=== PATIENT | female | born 1960 | race Caucasian/White ===

== ENCOUNTER 2018-11-12 00:28 | Emergency (ER) | payer SELFPAY ==
[2018-11-12] MEDS ORDERED: Morphine 4 MG/ML VIAL ONE (00:55)
[2018-11-12] MEDS ORDERED: Ondansetron PF 4 MG/2 ML Vial ONE ×2 (00:56→02:04)
[2018-11-12 01:08] LABS: #Basophils 0.1 thou/uL (0.0-0.2); #Eosinphils 0.6 thou/uL (0.0-0.7); #Lymphocytes 2.4 thou/uL (1.20-3.40); #Monocytes 1.1 thou/uL (0.11-0.59); #Neutrophils 14.2 thou/uL (1.40-6.50); %Basophils 0.6 % (0.0-1.0); %Eosinophils 3.5 % (0.0-10.0); %Lymphocytes 12.8 % (21.0-51.0); %Monocytes 6.1 % (0.0-10.0); Hemoglobin 14.9 g/dL (12.0-16.0); Mean Corpuscular HGB CONC 34.4 g/dL (32.0-36.0); Mean Corpuscular Hemoglobin 30.5 pg (27.0-31.0); Mean Corpuscular Volume 88.5 fL (78.0-98.0); Platelet Count 299 thou/uL (130-400); RBC Distribution Width 11.5 % (11.5-14.5); White Blood Cell (WBC) Count 18.4 thou/uL (4.8-10.8)
[2018-11-12 01:16] LABS: BHCG - Serum Negative (NEGATIVE); Pregs Control Background? CLEAR/WHITE (CLR/WHITE); Pregs Control Bar Appear? YES (CONTROL BAR)
[2018-11-12 01:25] LABS: ALT (SGPT) 35 U/L (8-55); AST (SGOT) 23 U/L (5-34); Albumin 4.2 g/dL (3.5-5.0); Alkaline Phosphatase 111 U/L (40-150); Anion Gap 15 mmol/L (10-20); BUN (Urea Nitrogen) 12 mg/dL (9.8-20.1); Bilirubin, Total 0.5 mg/dL (0.2-1.2); Calc. Creatinine Clearance 0 mL/min (70-130); Calcium 9.8 mg/dL (7.8-10.44); Carbon Dioxide 21 mmol/L (22-29); Chloride 106 mmol/L (98-107); Estimated GFR-MDRD 71; Globulin 3.4 g/dL (2.4-3.5); Glucose 176 mg/dL (70-105); Lipase 24 U/L (8-78); Potassium 3.9 mmol/L (3.5-5.1); Protein, Total 7.6 g/dL (6.0-8.3); Sodium 138 mmol/L (136-145)
[2018-11-12] MEDS ORDERED: Fentanyl 100 MCG/2 ML VIAL ONE (02:04)
[2018-11-12 02:07] LABS: Bilirubin Negative (Negative); Blood, Urine Trace (Negative); Clarity Slightly Cloudy (Clear); Glucose, Urine (Dipstick) Negative (Negative); Leukocyte Negative (Negative); Nitrite Negative (Negative); Protein, Urine (Dipstick) Negative (Neg-Trace); Specific Gravity, Urine 1.015 (1.005-1.030); Urobilinogen 0.2 mg/dL (0.2-1.0); pH, Urine 6.5 (5.0-9.0)
[2018-11-12 02:16] LABS: Bacteria/HPF None Seen HPF (None Seen); Hyaline Casts/LPF 0-3 HYALINE CAST LPF (0-3 Hyaline); RBC/HPF 0-3 HPF (0-3); WBC/HPF 0-3 HPF (0-3)
[2018-11-12] MEDS ORDERED: Promethazine HCl 25 MG/ML VIAL ONE (02:46)
[2018-11-12] MEDS ORDERED: Promethazine 25 MG TAB ONE (04:09)
--- NOTE | 2018-11-12 08:06 | CT ---
PRELIMINARY REPORT/[facility]/EMERGENCY AFTER HOURS PROCEDURE: EXAM: CT Abdomen and Pelvis With Contrast EXAM DATE/TIME: 11/12/2018 2:32 AM CLINICAL HISTORY: 58 years old, female; Constipation and vomiting; General abd pain, tried castor oil with no relief. T ubal 20 years ago, no cycles in two years. TECHNIQUE: Imaging protocol: Axial computed tomography images of the abdomen and trevor with intravenous contras t. Coronal and sagittal reformatted images were created and reviewed. Radiation optimization: All CT scans at this facility use at least one of these dose optimization medardo hniques: automated exposure control; mA and/or kV adjustment per patient size (includes targeted exam s where dose is matched to clinical indication); or iterative reconstruction. Contrast material: [id number]; Contrast volume: 90 ml; Contrast route: IV,ORAL; COMPARISON: No relevant prior studies available. FINDINGS: Lungs: Bibasilar linear parenchymal scarring or subsegmental collapse / atelectasis. Liver: Scattered small cysts within the liver as well as a few other hypodensities which are too smal l to definitively characterize. Gallbladder and bile ducts: Normal. No calcified stones. No ductal dilation. Pancreas: Normal. No ductal dilation. Spleen: Normal. No splenomegaly. Adrenals: Normal. No mass. Kidneys and ureters: Normal. No hydronephrosis. Stomach and bowel: Within the mid to lower abdomen, multiple mildly distended, primarily fluid filled small bowel loops - some with minimal wall thickening - which may reflect a mild enteritis. In addit ion, mild wall thickening of the proximal / mid descending colon with minimal pericolonic stranding a nd minimal fluid within the left paracolic gutter indicating an associated colitis. Large amount of s tool within the cecum, ascending colon, and transverse colon. Appendix: No evidence of appendicitis. Intraperitoneal space: Normal. No free air. No significant fluid collection. Vasculature: Normal. No abdominal aortic aneurysm. Lymph nodes: Normal. No enlarged lymph nodes. Bladder: Unremarkable as visualized. Reproductive: Multiple uterine leiomyomas, one with internal calcification. Bones/joints: No acute fracture. No dislocation. Soft tissues: Small fat-containing umbilical hernia. IMPRESSION: 1. Within the mid to lower abdomen, multiple mildly distended, primarily fluid filled small bowel loo ps - some with minimal wall thickening - which may reflect a mild enteritis. 2. In addition, mild wall thickening of the proximal / mid descending colon with minimal pericolonic stranding and minimal fluid within the left paracolic gutter indicating an associated colitis. 3. Large amount of stool within the cecum, ascending colon, and transverse colon. 4. Multiple uterine leiomyomas, one with internal calcification. Thank you for allowing us to participate in the care of your patient. Dictated and Authenticated by: Gio Castorena MD 11/12/2018 3:50 AM Central Time ([place] & [place]) FINAL REPORT CT OF ABDOMEN AND PELVIS PERFORMED WITH INTRAVENOUS CONTRAST ENHANCEMENT. HISTORY: Abdominal pain, constipation. FINDINGS: The lung bases show some linear atelectasis or scar. No pulmonary nodules. Hypodensities within the liver are most likely small cysts. The spleen is normal in appearance. Cardoso creas and gallbladder regions are unremarkable. Right and left adrenal glands and right and left kidneys are normal in size. There are small periaortic and mesenteric nodes, none of which appear significantly enlarged. There is a large amount of stool within the colon, particularly the ascending and transverse colon an d also within the descending colon. Associated with the changes in the descending colon are wall thi ckening and pericolonic fat stranding compatible with a colitis. Some mild fluid-filled small bowel loops. This may be on the basis of the large amount of stool in the colon. No signs of an obstructi on. CT OF PELVIS PERFORMED WITH CONTRAST ENHANCEMENT: The uterus is enlarged with multiple fibroids. The appendix is normal. No adenopathy, mass, or fluid . IMPRESSION: 1. Large amount of stool within the colon with wall thickening and pericolonic fat stranding involvi ng the left colon, mainly the descending colon, compatible with a colitis. This could be a stercoral colitis related to the large amount of stool. There is also some mild fluid-filled distention to so me of the small bowel loops, probably on the basis of the large amount of stool within the colon. 2. Enlarged uterus with fibroids. 3. This report is in agreement with the temporary report issued by [email or web address]. POS: [facility]
[2018-11-12] MEDS ORDERED: Iopamidol 300 61% 100 ML VIAL FS ONE (09:00)
== END 2018-11-12 04:21 | disposition home or self-care (01) ==
LOC: SCSER 00:28
DX: K52.9 Noninfective gastroenteritis and colitis, unspecified (principal); K59.00 Constipation, unspecified; D25.9 Leiomyoma of uterus, unspecified; F17.210 Nicotine dependence, cigarettes, uncomplicated
CPT/HCPCS: 36415; 74177; 80053; 81003; 81015; 83605; 83690; 84484; 84703; 85025; 93005; 96361; 96365; 96375; 96376; J2270; J2405; J2550; J3010; Q0169; Q9967

== ENCOUNTER 2019-03-09 19:01 | Emergency (ER) | payer SELFPAY ==
[2019-03-09] MEDS ORDERED: Adacel (T-DAP) 0.5 ML SYRINGE ONE (19:52)
[2019-03-09] MEDS ORDERED: Ondansetron PF 4 MG/2 ML Vial ONE (19:52)
--- NOTE | 2019-03-09 20:28 | CT ---
CT HEAD WITHOUT CONTRAST: INDICATIONS: Head injury. COMPARISON: Prior head CT from 2015. FINDINGS: The ventricles have normal size and position. There is no evidence of intracranial mass or hemorrhage . No contusion or edema. The sinuses and mastoids are clear. IMPRESSION: No acute findings. POS: [facility]
--- NOTE | 2019-03-09 20:40 | CT ---
CT CERVICAL SPINE WITHOUT CONTRAST: INDICATIONS: Injury. FINDINGS: The cervical vertebrae maintain normal height and alignment. Mild degenerative change. No evidence of fracture. IMPRESSION: No evidence of cervical spine fracture. POS: [facility]
== END 2019-03-09 20:20 | disposition home or self-care (01) ==
LOC: SCSER 19:01
DX: S00.03XA Contusion of scalp, initial encounter (principal); F17.210 Nicotine dependence, cigarettes, uncomplicated; W01.10XA Fall on same level from slipping, tripping and stumbling with subsequent striking against unspecified object, initial encounter
CPT/HCPCS: 70450; 72125; 90471; 90715; 96374; 96375; J2270; J2405

== ENCOUNTER 2019-06-09 07:56 | Outpatient (CLI) | payer OTHER ==
--- NOTE | 2019-06-09 08:17 | RAD ---
EXAM: XR Thoracic Spine 2 View PROVIDED CLINICAL HISTORY: Back pain. Patient states mid back pain. COMPARISON: None FINDINGS: There is slight left convex curvature of the thoracic spine which may be positional. The vertebral kuldeep dy heights are within normal limits. No fracture or subluxation is appreciated. Scattered osteophytes are seen in the thoracic spine. IMPRESSION: Mild degenerative changes in thoracic spine. No definite acute osseous abnormality is seen.
== END 2019-06-09 07:57 | disposition home or self-care (01) ==
LOC: BICRAD 07:56
PROVIDERS: ATTEND Family Medicine
DX: M54.9 Dorsalgia, unspecified (principal); M47.814 Spondylosis without myelopathy or radiculopathy, thoracic region
CPT/HCPCS: 36415; 72070; 80053; 80061; 82306

== ENCOUNTER 2019-06-16 08:03 | Outpatient (CLI) | payer OTHER ==
--- NOTE | 2019-06-16 08:32 | BD ---
EXAM: DEXA bone density examination HISTORY: 59-year-old postmenopausal female for screening COMPARISON: None FINDINGS: L1--bone mineral density 0.913 g/sq cm; T score -0.7 L2--bone mineral density 1.034 g/sq cm; T score 0.1 L3--bone mineral density 0.980 g/sq cm; T score -0.9 L4--bone mineral density 0.905 g/sq cm; T score -1.4 Total L1-L4--bone mineral density 0.956 g/sq cm; T score -0.8 Left femoral neck--bone mineral density0.669; T score -1.6 Total proximal left femur--bone mineral density 0.905; T score -0.3 IMPRESSION: Osteopenia This patient has a 10 year WHO fracture risk of a major osteoporotic fracture of 7.8% and of a hip fracture of 1.2%.
--- NOTE | 2019-06-16 08:56 | MMO ---
Bilateral MAMMO Bilat Screen [facility]. CLINICAL HISTORY: Patient is 59 years old and is seen for screening. The patient has no family history of breast cancer. The patient has no personal history of cancer. VIEWS: The views performed were: bilateral craniocaudal with tomosynthesis and bilateral mediolateral oblique with tomosynthesis. This study has been interpreted with the assistance of computer-aided detection. MAMMOGRAM FINDINGS: There are scattered fibroglandular densities. There is a focal asymmetry seen in the outer region of the left breast. There are no suspicious masses, suspicious calcifications, or new areas of architectural distortion. IMPRESSION: THERE IS NO MAMMOGRAPHIC EVIDENCE OF MALIGNANCY. A ROUTINE FOLLOW-UP MAMMOGRAM IN 1 YEAR IS RECOMMENDED. THE RESULTS OF THIS EXAM WERE SENT TO THE PATIENT. ACR BI-RADS Category 2 - Benign finding MAMMOGRAPHY NOTE: 1. A negative mammogram report should not delay a biopsy if a dominant of clinically suspicious mass is present. 2. Approximately 10% to 15% of breast cancers are not detected by mammography. 3. Adenosis and dense breasts may obscure an underlying neoplasm. Reported by: ZEN MONROE MD Electonically Signed: [id number]
== END 2019-06-16 08:04 | disposition home or self-care (01) ==
LOC: BICMAMMO 08:03
PROVIDERS: ATTEND Family Medicine
DX: Z12.31 Encounter for screening mammogram for malignant neoplasm of breast (principal); Z13.820 Encounter for screening for osteoporosis; Z78.0 Asymptomatic menopausal state; M85.89 Other specified disorders of bone density and structure, multiple sites
CPT/HCPCS: 77063; 77067; 77080

== ENCOUNTER 2022-09-26 12:12 | Outpatient (CLI) | payer OTHER | END 2022-09-26 12:13 | disposition home or self-care (01) | LOC: RAD 12:12 | PROVIDERS: ATTEND Nurse Practitioner Family | DX: M25.421 Effusion, right elbow (principal); M77.01 Medial epicondylitis, right elbow ==

== ENCOUNTER 2023-02-06 12:07 | Outpatient (CLI) | payer OTHER | END 2023-02-06 12:08 | disposition home or self-care (01) | LOC: BICMAMMO 12:07 | PROVIDERS: ATTEND Family Medicine | DX: Z12.31 Encounter for screening mammogram for malignant neoplasm of breast (principal) | CPT/HCPCS: 77063; 77067 ==

== ENCOUNTER 2024-02-10 12:11 | Outpatient (CLI) | payer OTHER | END 2024-02-10 12:12 | disposition home or self-care (01) | LOC: BICMAMMO 12:11 | PROVIDERS: ATTEND Family Medicine | DX: Z12.31 Encounter for screening mammogram for malignant neoplasm of breast (principal) | CPT/HCPCS: 77067 ==

== ENCOUNTER 2025-02-22 12:00 | Outpatient (CLI) | payer OTHER | END 2025-02-22 12:01 | disposition home or self-care (01) | LOC: BICMAMMO 12:00 | PROVIDERS: ATTEND Family Medicine | DX: Z12.31 Encounter for screening mammogram for malignant neoplasm of breast (principal) | CPT/HCPCS: 77063; 77067 ==